=== PATIENT | female | born 1965 | race Caucasian/White ===

== ENCOUNTER → 2020-11-21 | Outpatient (CLI) | payer BC, OTHER ==
[~2020-11-21] MED LIST: K-DUR TAB 20 M20 MEQ PO; OMNICEF 300 MG300 MG PO; ZITHROMAX500 MG PO
== END ==
LOC: KOH-I 16:22
DX: M25.571 Pain in right ankle and joints of right foot (principal); M19.071 Primary osteoarthritis, right ankle and foot
CPT/HCPCS: 73630

== ENCOUNTER → 2021-12-11 | Outpatient (CLI) | payer BC | LOC: KOH-I 12:17 | DX: R09.02 Hypoxemia (principal); R91.8 Other nonspecific abnormal finding of lung field | CPT/HCPCS: 71046 ==

== ENCOUNTER → 2021-12-18 | Outpatient (CLI) | payer BC | LOC: CT 08:30 | DX: R91.8 Other nonspecific abnormal finding of lung field (principal); K43.9 Ventral hernia without obstruction or gangrene; I27.20 Pulmonary hypertension, unspecified | CPT/HCPCS: 36415; 71260; 82565; Q9967 ==

== ENCOUNTER 2022-03-11 13:10 | Inpatient (IN) | payer BC ==
[~2022-03-11] VITALS: Ht 170.2 cm; Wt 122.5 kg
[2022-03-11 13:52] LABS: HEMOGLOBIN 18.5 gm/dl (12.3-15.3); RED BLOOD COUNT 5.74 M/UL (4.00-5.10)
[2022-03-11] MEDS ORDERED: PROMETHAZINE HC25 M1 PO (15:13)
[2022-03-11] MEDS ORDERED: TRIAMTERENE-HC1 EAC1 PO (15:14)
[2022-03-11] MEDS ORDERED: MONTELUKAST SOD10 MG PO (15:14)
[2022-03-11] MEDS ORDERED: BUMETANIDE1 MG PO (15:14)
[2022-03-11] MEDS ORDERED: OZEMPIC0.25 MG/0. SQ (15:15)
[2022-03-11] MEDS ORDERED: FLONASE ALLER15.8 ML (15:15)
[2022-03-11] MEDS ORDERED: ZYRTEC10 MG PO (15:15)
[2022-03-12 01:57] LABS: WHITE BLOOD COUNT 12.5 K/UL (4.5-11.0)
[2022-03-12 02:10] LABS: HEMOGLOBIN 15.9 gm/dl (12.3-15.3); RED BLOOD COUNT 4.98 M/UL (4.00-5.10)
[2022-03-13 05:00] LABS: HEMOGLOBIN 15.2 gm/dl (12.3-15.3); RED BLOOD COUNT 4.82 M/UL (4.00-5.10); WHITE BLOOD COUNT 10.8 K/UL (4.5-11.0)
[2022-03-13 16:13] LABS: HEMATOCRIT 48.2 % (34.0-46.6)
[2022-03-15 16:14] LABS: HEPARIN INDUCED PLATELET AB 0.069 OD (0.000-0.400)
== END 2022-03-13 22:12 | disposition short-term general hospital (02) | DRG 175 ==
LOC: ER1 13:10 → CDU 15:20 → PROG CARE 15:20 → CCU 03-13 05:46
PROVIDERS: Internal Medicine; Physician Assistant Medical; Registered Nurse; Student in an Organized Health Care Education/Training Program; ADMIT Internal Medicine Infectious Disease
PROC: 5A0945A Assistance with Respiratory Ventilation, 24-96 Consecutive Hours, High Flow/Velocity Cannula (ICD-10-PCS; 2022-03-11)
PROC: B24BZZZ Ultrasonography of Heart with Aorta (ICD-10-PCS; principal; 2022-03-12)
DX: I26.99 Other pulmonary embolism without acute cor pulmonale (principal); J96.01 Acute respiratory failure with hypoxia; N17.9 Acute kidney failure, unspecified; E87.1 Hypo-osmolality and hyponatremia; Z20.822 Contact with and (suspected) exposure to COVID-19; Z68.41 Body mass index [BMI] 40.0-44.9, adult; N39.0 Urinary tract infection, site not specified; D35.02 Benign neoplasm of left adrenal gland; I08.1 Rheumatic disorders of both mitral and tricuspid valves; D69.6 Thrombocytopenia, unspecified; J30.2 Other seasonal allergic rhinitis; B96.20 Unspecified Escherichia coli [E. coli] as the cause of diseases classified elsewhere; E66.9 Obesity, unspecified; I45.10 Unspecified right bundle-branch block; I12.9 Hypertensive chronic kidney disease with stage 1 through stage 4 chronic kidney disease, or unspecified chronic kidney disease; N18.9 Chronic kidney disease, unspecified; E86.0 Dehydration; J45.40 Moderate persistent asthma, uncomplicated; Z87.01 Personal history of pneumonia (recurrent); Z88.8 Allergy status to other drugs, medicaments and biological substances; Z88.6 Allergy status to analgesic agent; Z88.2 Allergy status to sulfonamides; Z90.49 Acquired absence of other specified parts of digestive tract; Z91.040 Latex allergy status; Z82.49 Family history of ischemic heart disease and other diseases of the circulatory system; Z84.89 Family history of other specified conditions; Z87.891 Personal history of nicotine dependence; Z74.01 Bed confinement status
CPT/HCPCS: ECHO; 0240U; 36415; 36600; 71045; 80053; 81001; 82550; 82553; 82607; 82747; 82803; 83605; 83735; 83880; 83921; 84484; 85007; 85025; 85027; 85379; 85610; 85652; 85730; 86140; 87040; 87077; 87086; 87186; 93005; 93306; 93970; 94640; 94664; 94760; 96374; 99285; J0692; J1335; J1644; J7030; Q9967

== ENCOUNTER → 2022-05-28 | Outpatient (CLI) | payer BC ==
[~2022-05-28] MED LIST changes: +BUMETANIDE1 MG PO; +FLONASE ALLER15.8 ML; +MONTELUKAST SOD10 MG PO; +OZEMPIC0.25 MG/0. SQ; +PROMETHAZINE HC25 M1 PO; +TRIAMTERENE-HC1 EAC1 PO; +ZYRTEC10 MG PO
== END ==
LOC: SLEEP 13:42
DX: G47.33 Obstructive sleep apnea (adult) (pediatric) (principal); R09.02 Hypoxemia
CPT/HCPCS: 95810